=== PATIENT | female | born 1975 ===

== ENCOUNTER 2018-03-19 00:08 | Inpatient (IN) | payer MEDICAID ==
--- NOTE | 2018-03-19 00:13 | C.PDOC ---
History Of Present Illness The patient presents to the ED as a psychiatric transfer. Patient was evaluated and medically cleared at [facility] and accepted by Dr. Kebede as a psychiatric transfer for depression. Patient offers no additional complaints at this time. Time Seen by Provider: 03/19/18 00:13 History Per: Patient History/Exam Limitations: no limitations Onset/Duration Of Symptoms: Hrs Current Symptoms Are (Timing): Still Present Associated Symptoms: Depression Additional History Per: Patient Past Medical History Reviewed: Historical Data, Nursing Documentation, Vital Signs - Medical History PMH: No Chronic Diseases Surgical History: No Surg Hx Family History: States: Unknown Family Hx Review Of Systems Cardiovascular: Negative for: Chest Pain, Palpitations Respiratory: Negative for: Cough, Shortness of Breath Skin: Negative for: Rash, Lesions, Jaundice, Bruising Psych: Positive for: Depression, Other (psychiatric transfer ). Negative for: Suicidal ideation Physical Exam - Physical Exam Appears: Non-toxic, No Acute Distress Skin: Warm, Dry Oral Mucosa: Moist Chest: Symmetrical, No Deformity Respiratory: No Accessory Muscle Use Extremity: Normal ROM Neurological/Psych: Oriented x3 ED Course And Treatment O2 Sat by Pulse Oximetry: 99 (on RA ) Pulse Ox Interpretation: Normal Disposition Discussed With Dr.: Davide Kebede Comment: accepted the pt on his service and took over the care at 12:42 AM Doctor Will See Patient In The: Hospital Counseled Patient/Family Regarding: Studies Performed, Diagnosis - Disposition Disposition: HOSPITALIZED Disposition Time: 00:13 Condition: FAIR - POA Present On Arrival: None - Clinical Impression Clinical Impression: Major depression, Anxiety - Scribe Statement The provider has reviewed the documentation as recorded by the Scribe (Racquel Pierson) Provider Attestation: All medical record entries made by the Scribe were at my direction and personally dictated by me. I have reviewed the chart and agree that the record accurately reflects my personal performance of the history, physical exam, medical decision making, and the department course for this patient. I have also personally directed, reviewed, and agree with the discharge instructions and disposition. Decision To Admit - Pt Status Changed To: Hospital Disposition Of: Inpatient - Admit Certification Admit to Inpatient:: After my assessment, the patient will require hospitalization for at least two midnights. This is because of the severity of symptoms shown, intensity of services needed, and/or the medical risk in this patient being treated as an outpatient. - InPatient: Physician Admission Certification: I certify that this patient requires 2 or more midnights of care for the following reason:: After my assessment, the patient will require hospitalization for at least two midnights. This is because of the severity of symptoms shown, intensity of services needed, and/or the medical risk in this patient being treated as an outpatient. - . Bed Request Type: Psychiatry Admitting Physician: Davide Kebede Patient Diagnosis: Major depression, Anxiety
--- NOTE | 2018-03-19 04:43 | PCM.BM ---
<Cheko Goldberg - Last Filed: 03/19/18 04:41> Treatment Plan Problems - Problems identified on initial assessmt Medication Nonadherence Date Initiated: 03/19/18 Time Initiated: 01:35 Assessment reference: NA Status: Active Anxiety Date Initiated: 03/19/18 Time Initiated: 01:35 Assessment reference: NA Status: Active Treatment assets and liabiliti Patient Assests: adapts well, cooperative, ADL independent, good support system, negotiates basic needs, cognitively intact Patient Liabilities: financial problems - Milieu Protocol Maintain good personal hygiene: daily Encourage regular showers, daily Remind patient to perform daily oral care, daily Assist patient to perform ADL's Conduct patient checks and document Observation sheet: Q15 minutes Maintain personal safety: every shift Educate patient to report safety concerns to staff, every shift Monitor environment for contraband/sharps Medication safety: Monitor for expected outcome, potential side effects: every shift, Assess barriers to learning: every shift, Assess readiness for medication education: every shift <Davide Kebede - Last Filed: 03/19/18 10:27> - Diagnosis (1) Bipolar disorder with psychotic features Status: Acute Interventions: 03/19/18 10:27 * Assess/adjust medications daily and /or as needed * See patient on an individual basis 7x/week to assess level of manic behaviors and stability * Discuss risks, benefits, side effects and alternatives of medications * (2) Sedative, hypnotic or anxiolytic use disorder, severe, dependence Status: Acute Interventions: * Assess 7x/week regarding severity of withdrawal * Educate regarding risks, benefits, side effects and alternatives of medications * Use Motivational Interviewing for abstinence * Use CBT for relapse prevention * Medication management for withdrawal symptoms * Encourage medication assisted treatment * (3) Opioid use disorder, moderate, dependence Status: Acute Interventions: 03/19/18 10:28 * Assess 7x/week regarding severity of withdrawal * Educate regarding risks, benefits, side effects and alternatives of medications * Use Motivational Interviewing for abstinence * Use CBT for relapse prevention * Medication management for withdrawal symptoms * Encourage medication assisted treatment * <Lina Esquivel - Last Filed: 03/19/18 11:51> Family Contact Family involvement: Famliy/SO not involved - Goals for Treatment Patient goals for treatment: "I need an outpatient program close to home." Discharge/Continuing Care - Education Needs Education Needs: Patient Medication, Patient Coping Skills - Discharge Discharge Criteria: Tolerates medication w/o severe side effects, Reduction of target symptoms Discharge to:: Home - Treatment Team Participation Discussed with Family/SO: No Was Patient/Family/SO present at Treatment Team Meeting: Yes
[2018-03-19 06:55] VITALS: RESP 20; O2SAT 97
--- NOTE | 2018-03-19 10:05 | PCM.PSYCH ---
Initial Psychiatric Evaluation - Initial Psychiatric Evaluation Type of Admission: Voluntary Legal Status: Capacity Chief Complaint (in patient's own words): I was feeling down and depressed.' History of Present Illness and Precipitating Events: Pt is a 42 y.o. female, who was transferred from [facility], because of depressed mood and suicidal ideation. Pt. reports psychiatric history of bipolar disorder, borderline personality dis order, and anxiety. Pt has history of multiple inpatient psychiatric hospitalizations and she reports history of follow up with a psychiatrist in the past. Pt reports that she ran out of her medications including suboxone. Yesterday she overdosed on 8 neurontin tablets to kill herself. She reports depressed mood and feelings of hopelessness and helplessness. She reports irritability and agitation and at times racing thoughts. She reports history of suicidal ideation and one attempt by cutting wrist, in the past. She reports of taking klonopins for anxiety and taking percocets for pain. She reports of auditory hallucinations but denies any other psychotic symptoms. PMH: Asthma, Seizures Current Medications: Active Medications Generic Name Dose Route Start Last Admin Trade Name Freq PRN Reason Stop Dose Admin Influenza Virus Vaccine 60 mcg 03/22/18 10:00 Flucelvax Quad [id number] Syr IM 03/22/18 10:01 .ONCE ONE Pneumococcal Polyvalent Vaccine 0.5 ml 03/21/18 10:00 Pneumovax 23 Vaccine IM 03/21/18 10:01 .ONCE ONE Past Psychiatric History - Past Psychiatric History Previous Treatment History: Inpatient Pertinent Medical Hx (Current Medical&Sleep Prob, Allergies): Allergies Allergy/AdvReac Type Severity Reaction Status Date / Time No Known Allergies Allergy Verified 03/19/18 00:17 Buprenorphine HCl/Naloxone HCl [Suboxone 8 mg-2 mg Sl Film] 1 each SL DAILY 03/19/18 Clonazepam [Klonopin] 2 mg PO DAILY PRN 03/19/18 Fluoxetine HCl [Prozac] 80 mg PO DAILY 03/19/18 Gabapentin 600 mg PO QPM 03/19/18 Gabapentin [Neurontin] 800 mg PO Q12 03/19/18 Levetiracetam [Keppra] 500 mg PO BID 03/19/18 Ziprasidone [Geodon] 60 mg PO DAILY 03/19/18 busPIRone [Buspar] 10 mg PO TID 03/19/18 Review of Systems - Review of Systems All systems: reviewed and no additional remarkable complaints except - Psychiatric Psychiatric: Anxiety, Auditory Hallucinations, Irritability, Mood Swings, Suicidal Ideation Mental Status Examination - Personal Presentation Personal Presentation: Looks stated age - Affect Affect: Broad - Motor Activity Motor Activity: Psychomotor Agitation - Reliability in Providing Information Reliability in Providing Information: Poor, due to altered mood - Speech Speech: Organized - Mood Mood: Depressed, Anxious - Formal Thought Process Formal Thought Process: Hallucinations, Paranoia - Hallucinations/Delusions Hallucinations: Auditory Delusions: Persecution - Obsessions/Compulsions Obsessions: No Compulsions: No - Cognitive Functions Orientation: Person, Place, Situation, Time Sensorium: Alert Attention/Concentration: Attentive Abstract Thinking: [place] Estimate of Intelligence: Below average Judgement: Imparied, as evidence by: Poor judgement, Imparied, as evidence by: Lack of insight into illness - Risk Risk: Suicidal, Diminished functioning - Limitations Limitations: Living alone DSM 5 DX - DSM 5 DSM 5 Diagnosis: Bipolar disorder mixed severe with psychotic features Sedative hypnotics use disorder severe Sedative hypnotics withdrawal Opioid use disorder severe Opioid withdrawal - Recommended/Plan of Treatment Treatment Recommendations and Plan of Treatment: Bipolar disorder mixed severe with psychotic features Sedative hypnotics use disorder severe Sedative hypnotics withdrawal Opioid use disorder severe Opioid withdrawal -CBT -Psychoeducation -Supportive therapy and group therapy -Ativan taper -Methadone taper -Gabapentin for augmentation -Geodon for for Psychosis -Neurontin for augmentation -Hydroxyzine for anxiety -Keppra for seizure - Smoking Cessation Smoking Cessation Initiated: No
--- NOTE | 2018-03-20 14:29 | PCM.PYCHPN ---
Psychiatric Progress Note - Psychiatric Progress Note Patient seen today, length of contact: 15 min Patient Chief Complaint: I m feeling depressed.' Problems Identified/Issues Discussed: Patient seen and evaluated, chart reviewed and discussed with the nurse. Today patient reports some improvement in her irritability, anxiety and agitation. She still reports depressed mood and feelings of hopelessness. She still reports withdrawal symptoms including shakes, anxiety, headaches and sweating. She is taking medications and denies any side effects Symptoms are improving but she needs more time for stabilization. Supportive therapy and psychoeducation were given. Medication Change: Yes Medical Record Reviewed: Yes Mental Status Examination - Cognitive Function Orientation: Person, Place, Situation, Time Memory: Intact Attention: WNL Concentration: Poor Association: WNL Fund of Knowledge: Poor - Mood Mood: Depressed, Anxious - Affect Affect: Constricted - Speech Speech: Soft - Formal Thought Process Formal Thought Process: Paranoia - Suicidal Ideation Suicidal Ideation: No - Homicidal Ideation Homicidal Ideation: No Goal/Treatment Plan - Goal/Treatment Plan Need for Continued Stay: Remain at risks for inpatient hospitalization, Severe depression anxiety Progress Toward Problem(s) and Goals/Treatment Plan: Bipolar disorder mixed severe with psychotic features Sedative hypnotics use disorder severe Sedative hypnotics withdrawal Opioid use disorder severe Opioid withdrawal -CBT -Psychoeducation -Supportive therapy and group therapy -Ativan taper -Methadone taper -Gabapentin for augmentation -Geodon for for Psychosis -Neurontin for augmentation -Hydroxyzine for anxiety -Keppra for seizure
[2018-03-21] MEDS ORDERED: Pneumococcal 23-Valent Vaccine IM ONE (10:00)
[2018-03-21] MEDS ORDERED: Influenza Vaccine 60 mcg/0.5 mL SYR (4YR UP) IM ONE (11:18)
--- NOTE | 2018-03-21 11:26 | PCM.PYCHPN ---
Psychiatric Progress Note - Psychiatric Progress Note Patient seen today, length of contact: 15 min Patient Chief Complaint: I m feeling depressed.' Problems Identified/Issues Discussed: Patient seen and evaluated, chart reviewed and discussed with the nurse. As per the staff, the withdrawal symptoms are a little better than yesterday. Today patient reports some improvement in her irritability, anxiety and agitation. She still reports depressed mood and feelings of hopelessness. She still reports withdrawal symptoms including shakes, anxiety, headaches and sweating. She is taking medications and denies any side effects Symptoms are improving but she needs more time for stabilization. Supportive therapy and psychoeducation were given. Medication Change: Yes Medical Record Reviewed: Yes Mental Status Examination - Cognitive Function Orientation: Person, Place, Situation, Time Memory: Intact Attention: WNL Concentration: Poor Association: WNL Fund of Knowledge: Poor - Mood Mood: Depressed, Anxious - Affect Affect: Constricted - Speech Speech: Soft - Formal Thought Process Formal Thought Process: Paranoia - Suicidal Ideation Suicidal Ideation: No - Homicidal Ideation Homicidal Ideation: No Goal/Treatment Plan - Goal/Treatment Plan Need for Continued Stay: Remain at risks for inpatient hospitalization, Severe depression anxiety Progress Toward Problem(s) and Goals/Treatment Plan: Bipolar disorder mixed severe with psychotic features Sedative hypnotics use disorder severe Sedative hypnotics withdrawal Opioid use disorder severe Opioid withdrawal -CBT -Psychoeducation -Supportive therapy and group therapy -Ativan taper -Methadone taper -Gabapentin for augmentation -Geodon for for Psychosis -Neurontin for augmentation -Hydroxyzine for anxiety -Keppra for seizure
[2018-03-22] MEDS ORDERED: Influenza Vaccine 60 mcg/0.5 mL SYR (4YR UP) IM ONE (10:00)
--- NOTE | 2018-03-22 21:25 | PCM.PYCHPN ---
Psychiatric Progress Note - Psychiatric Progress Note Patient seen today, length of contact: 15 min Medication Change: No Medical Record Reviewed: Yes Mental Status Examination - Cognitive Function Orientation: Person, Place, Situation, Time Memory: Intact Attention: WNL Concentration: Poor Association: WNL Fund of Knowledge: Poor - Mood Mood: Depressed, Anxious - Affect Affect: Constricted - Speech Speech: Soft - Formal Thought Process Formal Thought Process: Paranoia - Suicidal Ideation Suicidal Ideation: No - Homicidal Ideation Homicidal Ideation: No Goal/Treatment Plan - Goal/Treatment Plan Need for Continued Stay: Remain at risks for inpatient hospitalization, Severe depression anxiety
[2018-03-24 09:30] VITALS: BP 121/78; PULSE 84; TEMP 97.6
--- NOTE | 2018-03-24 10:47 | PCM.PYCHDC ---
Mental Status Examination - Mental Status Examination Orientation: Person, Place, Situation, Time Memory: Intact Mood: Neutral Affect: Constricted Speech: Soft Attention: WNL Concentration: WNL Association: WNL Fund of Knowledge: WNL Formal Thought Process: No Impairment Description of patient's judgement and insight: good, fair Psychotic Thoughts and Behaviors: denies any AVH Suicidal Ideation: No Current Homicidal Ideation?: No Discharge Summary - Discharge Note Reason for Hospitalization: Pt is a 42 y.o. female, who was transferred from [facility], because of depressed mood and suicidal ideation. Pt. reports psychiatric history of bipolar disorder, borderline personality disorder, and anxiety. Pt has history of multiple inpatient psychiatric hospitalizations and she reports history of follow up with a psychiatrist in the past. Pt reports that she ran out of her medications including suboxone. Yesterday she overdosed on 8 neurontin tablets to kill herself. She reports depressed mood and feelings of hopelessness and helplessness. She reports irritability and agitation and at times racing thoughts. She reports history of suicidal ideation and one attempt by cutting wrist, in the past. She reports of taking klonopins for anxiety and taking percocets for pain. She reports of auditory hallucinations but denies any other psychotic symptoms. Consultations:: List each consultation separately and include: 1. Reason for request. 2. Findings. 3. Follow-up Summary of Hospital Course include:: 1. Description of specific treatment plan utilized for patients during their course of treatmen. 2. Summarize the time- course for resolution of acute symptoms and/or regressed behaviors. 3. Describe issues identified and worked on during hospitalization. 4. Describe medication utilized. 5. Describe medical problems identified and treated. 6. Reassessment of suicide risk Summary of Hospital Course: During the course of her stay, patient (pt) started progressively improving and no longer remained irritable, depressed, and suicidal. Her mood and anxiety were improved and she started attending groups and meetings and started socializing. Patient denied any feelings of hopelessness, helplessness, and worthlessness, denied any problem with the sleep or appetite, denied suicidal ideation or homicidal ideation. Pt denied any auditory or visual hallucinations. She denied any withdrawal symptoms. Pt was treated with medications along with supportive therapy, milieu therapy and group therapy. Some changes were made in her current medications and patient was discharged on following medications. She tolerated these medications very well and denied any side effects. - Diagnosis (1) Bipolar disorder with psychotic features Status: Acute (2) Sedative, hypnotic or anxiolytic use disorder, severe, dependence Status: Acute (3) Opioid use disorder, moderate, dependence Status: Acute - Final Diagnosis (DSM 5) Condition upon Discharge: FAIR DSM 5: Bipolar disorder mixed severe with psychotic features Sedative hypnotics use disorder severe Sedative hypnotics withdrawal Opioid use disorder severe Opioid withdrawal Disposition: HOME/ ROUTINE Follow-up Treatment Plan: [facility]up: [facility] [place] Education: Pt was educated and counseled about the risks and benefits of taking and not taking medications. Pt was educated and counseled about the risks of drinking and abusing drugs. Pt was educated and counseled to go to the ER or call 911 if pt develop suicidal ideation or homicidal ideation, worsening of symptoms or severe side effects of the meds. Prescriptions/Medication Reconciliation: Gabapentin [Neurontin] 300 mg PO TID #90 cap Levetiracetam [Keppra] 500 mg PO BID #60 tablet traZODone [Desyrel] 50 mg PO HS PRN #30 tab PRN Reason: Insomnia Ziprasidone [Geodon Cap] 60 mg PO BID #60 cap - Smoking Cessation Smoking Cessation Medication prescribed: No - Antipsychotic Medications Pt discharged on 2 or more routine antipsychotic medications: No
== END 2018-03-24 14:40 | disposition home or self-care (01) | DRG 430 ==
LOC: C.ER 00:08 → C.5E 00:41
PROVIDERS: ADMIT Psychiatry & Neurology Psychiatry; ATTEND Psychiatry & Neurology Psychiatry
PROC: GZHZZZZ Group Psychotherapy (ICD-10-PCS; principal; 2018-03-19)
PROC: GZ56ZZZ Individual Psychotherapy, Supportive (ICD-10-PCS; 2018-03-19)
DX: F31.64 Bipolar disorder, current episode mixed, severe, with psychotic features (principal); F41.9 Anxiety disorder, unspecified; F60.3 Borderline personality disorder; J45.909 Unspecified asthma, uncomplicated; G40.802 Other epilepsy, not intractable, without status epilepticus; Z91.5 Personal history of self-harm